=== PATIENT | male | born 1995 | race Caucasian/White ===

== ENCOUNTER 2017-07-07 03:27 | Emergency (ER) | payer OTHER ==
[~2017-07-07] VITALS: Ht 185.4 cm; Wt 79.4 kg
[2017-07-07 04:33] VITALS: BP 133/94
== END 2017-07-07 04:33 | disposition left against medical advice (07) ==
LOC: ER 03:30
DX: H92.02 Otalgia, left ear (principal)
CPT/HCPCS: 99281